=== PATIENT | female | born 1980 | race African-American/Black ===

== ENCOUNTER 2017-05-24 09:42 | Emergency (ER) | payer OTHER ==
[~2017-05-24] VITALS: Ht 170.2 cm; Wt 90.7 kg
[~2017-05-24 09:42] MED LIST: ALBUTEROL2.5 MG/0.5 INH; AMITRIPTYLINE H25 M2 PO; ATENOLOL 100MG100 MG PO; BACTRIM DS TAB1 EACH PO; CELEXA20 MG PO; COLACE100 MG PO; IMITREX 25 MG T25 MG PO; KEFLEX500 MG PO; NAPROSYN500 M1 PO; NORCO 5-325 TA1 EACH PO; NORFLEX100 MG PO; PREDNISONE 20 M20 MG PO; PROAIR HFA8.5 GM INH; RANITIDINE 150150 MG PO; ROBAXIN 750 MG750 M1 PO; STRIBILD TABLE1 EACH PO; VENTOLIN HFA 1818 GM INH
[2017-05-24] MEDS ORDERED: IBUPROFEN 200200 M1 PO (09:52)
[2017-05-24] MEDS ORDERED: [UNRECOGNIZED DRUG - OTHER] (09:53)
[2017-05-24] MEDS ORDERED: BISACODYL SUPP10 MG RECTAL (09:54)
[2017-05-24] MEDS ORDERED: MULTI-VITAMIN1 EAC5 PO (09:55)
[2017-05-24] MEDS ORDERED: VENTOLIN HFA 1818 GM INH (09:55)
[2017-05-24] MEDS ORDERED: SENNA8.6 MG PO (10:28)
[2017-05-24] MEDS ORDERED: CRUTCHES MISCELL (10:28)
[2017-05-24] MEDS ORDERED: NORCO 5-325 TA1 EACH PO (10:36)
[2017-05-24 10:47] VITALS: BP 123/71
== END 2017-05-24 11:05 | disposition home or self-care (01) ==
LOC: ER 09:42
DX: S82.832A Other fracture of upper and lower end of left fibula, initial encounter for closed fracture (principal); F32.9 Major depressive disorder, single episode, unspecified; F41.9 Anxiety disorder, unspecified; I10 Essential (primary) hypertension; Z91.013 Allergy to seafood; W10.9XXA Fall (on) (from) unspecified stairs and steps, initial encounter; Y93.89 Activity, other specified; Y92.89 Other specified places as the place of occurrence of the external cause; Y99.9 Unspecified external cause status

== ENCOUNTER 2018-02-03 00:48 | Emergency (ER) | payer OTHER ==
[~2018-02-03] VITALS: Ht 170.2 cm; Wt 81.7 kg
[~2018-02-03 00:48] MED LIST changes: +BISACODYL SUPP10 MG RECTAL; +CRUTCHES MISCELL; +IBUPROFEN 200200 M1 PO; +MULTI-VITAMIN1 EAC5 PO; +NAPROSYN500 MG PO; +SENNA8.6 MG PO; +TOPROL XL100 MG PO; +[UNRECOGNIZED DRUG - OTHER]
[2018-02-03] MEDS ORDERED: ULTRAM 50MG TAB50 MG PO (01:21)
[2018-02-03 03:50] VITALS: BP 110/72
== END 2018-02-03 04:00 | disposition home or self-care (01) ==
LOC: ER 00:48
DX: S82.832A Other fracture of upper and lower end of left fibula, initial encounter for closed fracture (principal); F32.9 Major depressive disorder, single episode, unspecified; F43.10 Post-traumatic stress disorder, unspecified; F41.9 Anxiety disorder, unspecified; I10 Essential (primary) hypertension; F17.210 Nicotine dependence, cigarettes, uncomplicated; Z88.6 Allergy status to analgesic agent; Z91.013 Allergy to seafood; W18.49XA Other slipping, tripping and stumbling without falling, initial encounter; Y93.89 Activity, other specified; Y92.89 Other specified places as the place of occurrence of the external cause; Y99.8 Other external cause status

== ENCOUNTER 2019-03-19 16:52 | Emergency (ER) | payer OTHER ==
[~2019-03-19] VITALS: Ht 170.2 cm; Wt 90.7 kg
[~2019-03-19 16:52] MED LIST changes: +ULTRAM 50MG TAB50 MG PO
[2019-03-19 17:55] LABS: ABSOLUTE NEUTROPHILS 3.9 thou/uL (1.4-8.2); BASOPHILS 0.9 % (0.0-2.0); EOSINOPHILS 1.3 % (0.0-3.0); HEMATOCRIT 38.3 % (37.0-47.0); HEMOGLOBIN 12.7 gm/dL (12.0-15.0); LYMPHOCYTES 32.1 % (24.0-44.0); MCH 28.6 pg (26.0-34.0); MCHC 33.2 g/dL (28.0-37.0); MCV 85.9 fL (80.0-100.0); MONOCYTES 5.2 % (1.0-8.0); PLATELET COUNT 252 thou/uL (150-400); POLYS 60.5 % (36.0-66.0); RBC 4.45 mil/uL (4.20-5.00); RDW 15.8 % (10.5-14.5); WBC 6.4 thou/uL (4.0-11.0)
[2019-03-19 18:03] LABS: ANION GAP 6 mmol/L (7-16); BUN 7 mg/dL (7-18); CALCIUM 8.6 mg/dL (8.5-10.1); CHLORIDE 104 mmol/L (98-107); CO2 29 mmol/L (21-32); CREATININE 0.8 mg/dL (0.6-1.0); GLUCOSE 152 mg/dL (74-106); POTASSIUM 3.3 mmol/L (3.5-5.1); SODIUM 139 mmol/L (136-145)
[2019-03-19 18:09] LABS: ALBUMIN 3.4 g/dL (3.4-5.0); SGOT 19 U/L (15-37); SGPT 28 U/L (30-65); TOTAL BILIRUBIN 0.5 mg/dL (<0.1-1.0); TOTAL PROTEIN 7.3 g/dL (6.4-8.2)
[2019-03-19 18:22] LABS: SALICYLATE 3.2 mg/dL (2.8-20.0)
[2019-03-20 15:20] LABS: URINE BILIRUBIN NEGATIVE (Negative); URINE BLOOD NEGATIVE (Negative); URINE CLARITY CLEAR; URINE COLOR YELLOW; URINE GLUCOSE-RANDOM* NEGATIVE (Negative); URINE KETONES NEGATIVE (Negative); URINE LEUKOCYTES-REFLEX NEGATIVE (Negative); URINE NITRITE-REFLEX NEGATIVE (Negative); URINE PROTEIN (DIPSTICK) NEGATIVE (Negative); URINE SPECIFIC GRAVITY 1.015 (1.005-1.035)
[2019-03-20 15:28] LABS: AMP/METHAMP Negative (Negative); BARBITURATES Negative (Negative); BENZODIAZEPINES Negative (Negative); COCAINE Negative (Negative); METHADONE Negative (Negative); OPIATES Negative (Negative); PCP POSITIVE (Negative)
[2019-03-20 19:12] LABS: CALCIUM 8.8 mg/dL (8.5-10.1); CREATININE 0.7 mg/dL (0.6-1.0); POTASSIUM 4.1 mmol/L (3.5-5.1)
[2019-03-21 16:50] VITALS: BP 132/76
== END 2019-03-21 16:30 | disposition home or self-care (01) ==
LOC: ER 16:52
PROVIDERS: Emergency Medicine; Physician Assistant
DX: F22 Delusional disorders (principal); R45.851 Suicidal ideations; F32.9 Major depressive disorder, single episode, unspecified; F41.9 Anxiety disorder, unspecified; I10 Essential (primary) hypertension; F17.210 Nicotine dependence, cigarettes, uncomplicated; Z88.6 Allergy status to analgesic agent; Z91.013 Allergy to seafood